=== PATIENT | female | born 1960 | race Caucasian/White ===

== ENCOUNTER 2016-05-28 11:44 | Inpatient (IN) | payer OTHER ==
[~2016-05-28] VITALS: Ht 154.9 cm; Wt 93.6 kg
[~2016-05-28 11:44] MED LIST: ADVIL200 MG PO; FISH OIL-OMEGA1 EACH PO; IRON325 MG PO; JUNEL1 EAC1 PO; MUCINEX DM ER1 EACH PO; MULTIPLE VITAM1 EAC4 PO; PROAIR HFA8.5 GM IH; SINGULAIR10 MG PO
[2016-05-28 12:10] LABS: HEMATOCRIT 44.2 % (36.0-46.0); MCH 27.1 PG (29.0-34.0); MCHC 31.4 G/DL (30.0-36.0); MCV 86.3 FL (83-99); PLATELET COUNT 270 K/uL (156-360); RBC DIS.WIDTH-CV 13.7 % (11.8-14.6); RBC DIS.WIDTH-SD 43.3 % (39-53); RED BLOOD COUNT 5.12 M/uL (3.80-5.20); WHITE BLOOD COUNT 8.3 K/uL (4.1-10.2)
[2016-05-28 12:36] LABS: CHLORIDE 102 mEq/L (99-109); POTASSIUM 4.4 mEq/L (3.7-5.4); SODIUM 140 mEq/L (136-147)
[2016-05-28 12:38] LABS: GLUCOSE 121 mg/dL (70-99)
[2016-05-28 12:39] LABS: ANION GAP 10 MEQ/L (2-14)
[2016-05-28 12:42] LABS: GFR ESTIMATE (CALCULATED) > 59 mL/min/
[2016-05-28 12:43] LABS: UREA NITROGEN (BUN) 9 mg/dL (9-23)
[2016-05-28 20:36] VITALS: BP 131/60
[2016-05-28 23:41] VITALS: BP 118/60
[2016-05-29 03:20] VITALS: BP 127/79
[2016-05-29 07:37] VITALS: BP 123/64
[2016-05-29 10:37] VITALS: BP 130/73
[2016-05-29 15:54] VITALS: BP 131/74
[2016-05-29 23:32] VITALS: BP 122/67
[2016-05-30 03:57] VITALS: BP 130/72
[2016-05-30 07:45] VITALS: BP 131/68
[2016-05-30 08:27] LABS: HEMATOCRIT 43.1 % (36.0-46.0); MCH 27.1 PG (29.0-34.0); MCHC 30.9 G/DL (30.0-36.0); MEAN PLAT.VOLUME 8.7 uM^3 (9.5-12.4); PLATELET COUNT 276 K/uL (156-360); RBC DIS.WIDTH-CV 14.2 % (11.8-14.6); RBC DIS.WIDTH-SD 45.6 % (39-53)
[2016-05-30 08:28] LABS: WHITE BLOOD COUNT 12.3 K/uL (4.1-10.2)
[2016-05-30 08:51] LABS: ANION GAP 6 MEQ/L (2-14); CHLORIDE 101 MEQ/L (99-109); GFR ESTIMATE (CALCULATED) > 59 mL/min/; GLUCOSE 129 mg/dL (70-99); POTASSIUM 4.5 MEQ/L (3.7-5.4); SAMPLE HEMOLYSIS CHECK 0; SAMPLE ICTERIC CHECK 0; SAMPLE LIPEMIA CHECK 0; SODIUM 137 MEQ/L (136-147); UREA NITROGEN (BUN) 17 mg/dL (9-23)
[2016-05-30 09:33] LABS: BICARBONATE 27.9 mEq/L (22-26); METHEMOGLOBIN 1.6 % (0-1.5); PCO2 53 mm Hg (35-45); PO2 60 mm Hg (80-100); pH 7.33 (7.35-7.45)
[2016-05-30 09:34] LABS: COMMENTS - BLOOD GASES A+C+; DEVICE HFNC; O2 FLOW 10 L/MIN; SITE RR
[2016-05-30 12:20] VITALS: BP 137/94
[2016-05-30 15:50] VITALS: BP 134/67
[2016-05-30 17:32] LABS: INFLUENZA A VIRAL ANTIGEN NEGATIVE; INFLUENZA B VIRAL ANTIGEN NEGATIVE
[2016-05-30 20:18] VITALS: BP 120/68
[2016-05-30 23:23] VITALS: BP 128/73
[2016-05-31 03:47] VITALS: BP 128/74
[2016-05-31 06:21] LABS: HEMATOCRIT 37.7 % (36.0-46.0); MCV 87.1 FL (83-99); PLATELET COUNT 258 K/uL (156-360); RBC DIS.WIDTH-SD 44.9 % (39-53); RED BLOOD COUNT 4.33 M/uL (3.80-5.20); WHITE BLOOD COUNT 9.9 K/uL (4.1-10.2)
[2016-05-31 06:35] LABS: ANION GAP 7 MEQ/L (2-14); CHLORIDE 104 MEQ/L (99-109); GFR ESTIMATE (CALCULATED) > 59 mL/min/; GLUCOSE 176 mg/dL (70-99); POTASSIUM 4.8 MEQ/L (3.7-5.4); SAMPLE HEMOLYSIS CHECK 0; SAMPLE ICTERIC CHECK 0; SAMPLE LIPEMIA CHECK 0; SODIUM 140 MEQ/L (136-147); UREA NITROGEN (BUN) 15 mg/dL (9-23)
[2016-05-31 07:40] VITALS: BP 120/66
[2016-05-31 08:06] LABS: INTERNAL CONTROL VALID? YES
[2016-05-31 15:55] VITALS: BP 125/74
[2016-05-31 23:34] VITALS: BP 144/81
[2016-06-01 06:52] LABS: MCH 26.6 PG (29.0-34.0); MCHC 30.5 G/DL (30.0-36.0); MCV 87.2 FL (83-99); MEAN PLAT.VOLUME 8.9 uM^3 (9.5-12.4); PLATELET COUNT 244 K/uL (156-360); RBC DIS.WIDTH-CV 14.3 % (11.8-14.6); RBC DIS.WIDTH-SD 45.7 % (39-53); RED BLOOD COUNT 4.36 M/uL (3.80-5.20); WHITE BLOOD COUNT 9.2 K/uL (4.1-10.2)
[2016-06-01 07:17] LABS: ANION GAP 5 MEQ/L (2-14); CHLORIDE 103 MEQ/L (99-109); GFR ESTIMATE (CALCULATED) > 59 mL/min/; GLUCOSE 141 mg/dL (70-99); POTASSIUM 4.5 MEQ/L (3.7-5.4); SAMPLE HEMOLYSIS CHECK 0; SAMPLE ICTERIC CHECK 0; SAMPLE LIPEMIA CHECK 0; SODIUM 139 MEQ/L (136-147); UREA NITROGEN (BUN) 16 mg/dL (9-23)
[2016-06-01 07:25] VITALS: BP 123/78
[2016-06-01 16:07] VITALS: BP 130/71
[2016-06-01 23:55] VITALS: BP 120/71
[2016-06-02 07:03] LABS: HEMATOCRIT 38.2 % (36.0-46.0); MCH 26.9 PG (29.0-34.0); MCHC 30.9 G/DL (30.0-36.0); PLATELET COUNT 260 K/uL (156-360); RBC DIS.WIDTH-CV 14.2 % (11.8-14.6); RBC DIS.WIDTH-SD 45.4 % (39-53); RED BLOOD COUNT 4.39 M/uL (3.80-5.20)
[2016-06-02 07:25] LABS: ANION GAP 5 MEQ/L (2-14); CHLORIDE 102 MEQ/L (99-109); GFR ESTIMATE (CALCULATED) > 59 mL/min/; GLUCOSE 121 mg/dL (70-99); POTASSIUM 4.1 MEQ/L (3.7-5.4); SAMPLE HEMOLYSIS CHECK 0; SAMPLE ICTERIC CHECK 0; SAMPLE LIPEMIA CHECK 0; SODIUM 141 MEQ/L (136-147); UREA NITROGEN (BUN) 14 mg/dL (9-23)
[2016-06-02 07:26] VITALS: BP 140/85
[2016-06-02 11:40] VITALS: BP 149/81
[2016-06-02 15:43] VITALS: BP 114/61
[2016-06-02 23:27] VITALS: BP 131/80
[2016-06-03 08:00] VITALS: BP 126/71
[2016-06-03] MEDS ORDERED: PREDNISONE20 MG PO (11:56)
[2016-06-03] MEDS ORDERED: ADVAIR HFA120 INHALA IH (11:56)
== END 2016-06-03 12:40 | disposition home or self-care (01) | DRG 189 ==
LOC: EXP 11:44 → EME 11:44 → EDOF 16:56 → 2EAST 16:56
PROVIDERS: Nurse Practitioner Family
DX: J96.01 Acute respiratory failure with hypoxia (principal); J06.9 Acute upper respiratory infection, unspecified; J45.901 Unspecified asthma with (acute) exacerbation; J98.11 Atelectasis; D71 Functional disorders of polymorphonuclear neutrophils; J44.1 Chronic obstructive pulmonary disease with (acute) exacerbation; Z99.81 Dependence on supplemental oxygen; J96.02 Acute respiratory failure with hypercapnia; J20.9 Acute bronchitis, unspecified; R06.89 Other abnormalities of breathing; R09.02 Hypoxemia; R09.82 Postnasal drip; E66.9 Obesity, unspecified; K76.9 Liver disease, unspecified
CPT/HCPCS: 36600; 71010; 71020; 71275; 74000; 80048; 82803; 85025; 85027; 87040; 87449; 87502; 94010; 94640; 94640 76; 94644; 94667; 94668; 94799; 99202; 99281; 99285; J1100; J1650; J2920; J2930; J3475; J7512